=== PATIENT | female | born 1965 | race Two or more races ===

== ENCOUNTER 2019-09-24 03:30 | Emergency (ER) | payer MEDICAID ==
[~2019-09-24] VITALS: Ht 162.6 cm; Wt 85.9 kg
[2019-09-24 04:46] LABS: BASOPHILS % (AUTO) 0.6 % (0.0-2.0); EOSINOPHILS % (AUTO) 0.2 % (1.0-6.0); HEMATOCRIT 44.9 % (36-46); HEMOGLOBIN 15.2 g/dL (12.0-16.0); LYMPHOCYTES # (AUTO) 2.2 K/uL (1.0-4.8); MEAN CORPUSCULAR HEMOGLOBIN 29.5 pg (26.0-34.0); MEAN CORPUSCULAR HGB CONC 33.8 G/dL (31.0-37.0); MEAN CORPUSCULAR VOLUME 87 fL (80-100); MONOCYTES # (AUTO) 0.7 K/uL (0.1-1.0); MONOCYTES % (AUTO) 5.1 % (2.0-9.0); NEUTROPHILS # (AUTO) 11.6 K/uL (1.8-7.7); NEUTROPHILS % (AUTO) 79.1 % (40.0-70.0); PLATELET COUNT (AUTO) 341 K/uL (150-450); RED BLOOD CELL COUNT(AUTO) 5.14 MIL/uL (4.00-5.20)
[2019-09-24] MEDS ORDERED: ONDANSETRON HCL 4 MG/2 ML VIAL IVP ONE (05:00)
[2019-09-24] MEDS ORDERED: SODIUM CHLORIDE 0.9% 1,000 ML IV ONE (05:00)
[2019-09-24] MEDS ORDERED: HYDROmorphone 2 MG/ML SYRINGE IVP ONE (05:00)
[2019-09-24 05:01] LABS: ALBUMIN 4.3 g/dL (3.4-5.0); BILIRUBIN,TOTAL 0.9 mg/dL (0.1-1.0); CALCIUM, TOTAL 9.1 mg/dL (8.8-10.5); CREATININE 1.04 mg/dL (0.60-1.30)
[2019-09-24 05:07] LABS: POTASSIUM 2.8 mmol/L (3.5-5.1)
[2019-09-24] MEDS ORDERED: PB/HYOSCY/ATR/SCOP/LIDO/MAALOX 55 ML BOTTLE PO ONE (06:00)
[2019-09-24] MEDS ORDERED: POTASSIUM CHL 10 MEQ/WATER 50 ML IV ONE (06:00)
[2019-09-24 06:30] VITALS: BP 128/76
== END 2019-09-24 07:16 | disposition home or self-care (01) ==
LOC: EMS 03:30
DX: K29.00 Acute gastritis without bleeding (principal); A05.9 Bacterial foodborne intoxication, unspecified; E87.6 Hypokalemia; Z88.8 Allergy status to other drugs, medicaments and biological substances; Z91.041 Radiographic dye allergy status
CPT/HCPCS: 36415; 71045; 74176; 80053; 83690; 84484; 85025; 93005; 96361; 96365; 96375; 99284; J1170; J2405; J3480; J7030